=== PATIENT | female | born 1975 | race Caucasian/White ===

== ENCOUNTER 2018-09-09 01:51 | Emergency (ER) | payer BC ==
[~2018-09-09] VITALS: Ht 162.6 cm; Wt 64.4 kg
[2018-09-09 01:56] VITALS: Ht 162.6 cm; Wt 64.4 kg
[2018-09-09 03:54] VITALS: BP 123/81
== END 2018-09-09 03:54 | disposition home or self-care (01) ==
LOC: ED 01:51
DX: G89.18 Other acute postprocedural pain (principal); N64.4 Mastodynia
CPT/HCPCS: J1885; J2405; J3010